=== PATIENT | female | born 1965 | race Two or more races ===

== ENCOUNTER 2020-07-28 15:03 | Emergency (ER) | payer MEDICAID ==
[~2020-07-28] VITALS: Ht 152.4 cm; Wt 40.8 kg
[2020-07-28 15:30] VITALS: BP 121/68
--- NOTE | 2020-07-28 15:30 | NUR ---
ED Nurse Note: Pt walked in from home c/o sore throat since yesterday. Pt denies cough, SOB. Respirations even and unlabored on room air. Vitals stable as documented. A+Ox4, speaking in complete sentences.
--- NOTE | 2020-07-28 16:17 | Emergency Room Report ---
History of Present Illness General Chief Complaint: Sore Throat Source: Patient Present Illness HPI 54-year-old female with no signal past medical history here complaining of 2 days of sore throat and congestion. Denies shortness of breath, fever and chills, diarrhea. Denies sick contact. Has not taken medication for symptom relief. Denies chest pain, palpitation. Sitting comfortably with same vital signs. Allergies: Coded Allergies: No Known Allergies (Unverified , 07/28/20) COVID-19 Screening Contact w/high risk pt: No Experienced COVID-19 symptoms?: Yes COVID-19 Testing performed DIRECTOR OF CARDIOLOGY: No Patient History Past Medical History: see triage record Past Surgical History: none Pertinent Family History: none Now: No Immunizations: UTD Reviewed Nursing Documentation: PMH: Agreed; PSxH: Agreed Nursing Documentation-PMH Hx Diabetes: Yes Review of Systems All Other Systems: negative except mentioned in HPI Physical Exam Vital Signs Date Time Temp Pulse Resp B/P (MAP) Pulse Ox O2 Delivery O2 Flow Rate FiO2 07/28/20 15:24 98.1 107 20 111/74 (86) 99 Room Air Sp02 EP Interpretation: reviewed, normal General Appearance: no apparent distress, alert, GCS 15, non-toxic Head: normocephalic, atraumatic Eyes: bilateral eye normal inspection, bilateral eye PERRL ENT: hearing grossly normal, normal pharynx, no angioedema, normal voice Neck: full range of motion, supple/symm/no masses Respiratory: chest non-tender, no respiratory distress, no retraction, no accessory muscle use, speaking full sentences Cardiovascular #1: no edema, no murmur Gastrointestinal: normal bowel sounds, non tender, soft, non-distended, no guarding, no rebound Rectal: deferred Genitourinary: no CVA tenderness Musculoskeletal: back normal, no calf tenderness Neurologic: alert, oriented, oriented x3 Psychiatric: judgement/insight normal, memory normal, mood/affect normal, no suicidal/homicidal ideation Skin: no rash Lymphatic: no adenopathy Medical Decision Making PA Attestation All my diagnosis and treatment plans were reviewed ad discussed with my supervising physician Dr. Cope Diagnostic Impression: Primary Impression: Pharyngitis ER Course 54-year-old female with no signal past medical history here complaining of 2 days of sore throat and congestion. Denies shortness of breath, fever and chills, diarrhea. Denies sick contact. Has not taken medication for symptom relief. Denies chest pain, palpitation. Sitting comfortably with same vital signs. Ddx considered but are not limited to: strep pharyngitis, URI, tonsillitis, sandeep tonsillar abscess, influenza, bronchitis, coronavirus Vital signs: are WNL, pt. is afebrile H&PE are most consistent with: Pharyngitis ORDERS: Rapid Covid swab, chest x-ray, azithromycin, prednisone ED INTERVENTIONS: None required at this time. DISCHARGE: At this time pt. is stable for d/c to home. Will provide printed patient care instructions, and any necessary prescriptions. Care plan and follow up instructions have been discussed with the patient prior to discharge. Take medication as directed, follow primary care provider, if worsening symptoms return to the emergency room Chest X-Ray Diagnostic Results Chest X-Ray Diagnostic Results : Chest X-Ray Ordered: Yes # of Views/Limited/Complete: 1 View Indication: Other EP Interpretation: Yes RACHEL Xray: Interpretation reviewed, by supervising MD, and agrees with findings. Interpretation: no consolidation, no effusion, no pneumothorax Impression: No acute disease Electronically Signed by: Cosmo Benjamin PA-C Last Vital Signs Date Time Temp Pulse Resp B/P (MAP) Pulse Ox O2 Delivery O2 Flow Rate FiO2 07/28/20 15:30 98.6 105 20 121/68 98 Room Air Disposition: HOME, SELF-CARE Condition: Stable Scripts Azithromycin* (ZITHROMAX*) 250 Mg Tablet 250 MG ORAL DAILY, #6 TAB 0 Refills Take two tables once daily for 1 day, then one tablet once daily for 4 days. Prov: Cosmo Guallpa 07/28/20 Prednisone* (PREDNISONE*) 20 Mg Tablet 40 MG ORAL DAILY for 5 Days, #10 TAB Prov: Cosmo Guallpa 07/28/20 Referrals: NOT CHOSEN IPA/,REFERRING (PCP) Patient Instructions: Pharyngitis, [id number] Additional Instructions: Take medication as directed, follow primary care provider, if worsening symptoms return to the emergency room Cosmo Guallpa Jul 28, 2020 16:17
[2020-07-28] MEDS ORDERED: PREDNISONE20 MG ORAL (16:18)
[2020-07-28] MEDS ORDERED: ZITHROMAX250 MG ORAL (16:18)
[2020-07-28 16:22] VITALS: BP 126/72
--- NOTE | 2020-07-28 16:22 | NUR ---
ED Nurse Note: Pt cleared by health care Provider for discharge. DC instructions/prescription were given and explained to pt and verbalized understanding of teachings. All medical devices such as ID band removed. Pt is AAO x4, ambulatory and left with all personal belongings.
--- NOTE | 2020-07-28 16:35 | Diagnostic Imaging Report ---
Indication: Shortness of breath Technique: XRAY Chest 1v Comparison: None Findings: Patient subtle interstitial infiltrates in the right lung. No dense consolidation. No pneumothorax or pleural effusion. Heart size and mediastinal contours within normal limits. No acute osseous abnormality. Impression: Question very subtle developing interstitial infiltrates in the right lung. Possibility of pneumonia (including viral pneumonia) not excluded. Correlation with COVID 19 status recommended.
== END 2020-07-28 16:22 | disposition home or self-care (01) ==
LOC: EMR 15:47
DX: J02.9 Acute pharyngitis, unspecified (principal); E11.9 Type 2 diabetes mellitus without complications
CPT/HCPCS: 71045; U0002; Z7502; 99283

== ENCOUNTER 2020-09-09 19:04 | Emergency (ER) | payer OTHER ==
[~2020-09-09] VITALS: Ht 157.5 cm; Wt 40.8 kg
[~2020-09-09 19:04] MED LIST: PREDNISONE20 MG ORAL; ZITHROMAX250 MG ORAL
--- NOTE | 2020-09-09 19:26 | Emergency Room Report ---
History of Present Illness General Chief Complaint: To Be Triaged Source: Patient Present Illness HPI Patient presents with several days of cough, fever and shortness of breath mainly with exertion. She also has a mild degree of chest pain. Rates the pain 7/10 mainly when she is coughing. She took Tylenol yesterday. It helped minimally. She has been vomiting all food. Tolerating fluids. She denies dysu harper or diarrhea. Unclear whether there is loss of smell. The patient is never been tested for Covid. Patient is a smoker. She complains of mild headache and also some joint pain and some itchiness of her skin. She is complaining about a painful lesion on her left lower lip. She has never used an inhaler. 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 No palpitations, abdominal pain, depression, anxiety, visual changes, dizziness. In our history the patient is stated she has hypertension and diabetes. She admits she is taking medications for both. The diabetes medicine is twice a day. She is not sure what medicines they are. No chest pain, palpitations, diarrhea, dysuria, abdominal pain, rashes, depr ession, anxiety, visual changes, dizziness, headache. The patient was seen in July of this year and treated for pharyngitis with azithromycin and prednisone. A chest x-ray was negative at that time. Allergies: Coded Allergies: No Known Allergies (Unverified , 07/28/20) COVID-19 Screening Contact w/high risk pt: No Experienced COVID-19 symptoms?: Yes Patient History Past Medical History: see triage record, old chart reviewed Social History: Reports: smoking; Denies: alcohol use, drug use Social History Narrative works in a store, born in [place] Reviewed Nursing Documentation: PMH: Agreed; PSxH: Agreed Nursing Documentation-PMH Hx Diabetes: Yes Review of Systems All Other Systems: negative except mentioned in HPI Physical Exam Vital Signs Date Time Temp Pulse Resp B/P (MAP) Pulse Ox O2 Delivery O2 Flow Rate FiO2 09/09/20 19:18 98.1 69 18 144/85 (104) 98 Room Air Sp02 EP Interpretation: reviewed, normal General Appearance: no apparent distress, alert, GCS 15, non-toxic, thin Head: normocephalic Eyes: bilateral eye normal inspection, bilateral eye PERRL, bilateral eye EOMI ENT: moist mucus membranes - Edentulous, other Neck: supple Respiratory: chest non-tender, other - crackles R base, left normal Cardiovascular #1: regular rate, rhythm, no edema Cardiovascular #2: 2+ radial (R) Gastrointestinal: normal inspection, normal bowel sounds, non tender, no mass, non-distended, scaphoid Genitourinary: no CVA tenderness Musculoskeletal: back normal, normal range of motion, no calf tenderness, gait/station normal Neurologic: alert, oriented x3, grossly normal Psychiatric: mood/affect normal Skin: no rash, warm/dry, other - fully dressed Medical Decision Making Diagnostic Impression: Primary Impression: Dyspnea Qualified Codes: R06.00 - Dyspnea, unspecified Additional Impressions: Upper respiratory infection Qualified Codes: J06.9 - Acute upper respiratory infection, unspecified Tobacco abuse Covid antigen test negative Nausea & vomiting Qualified Codes: R11.2 - Nausea with vomiting, unspecified Cold sore Person under investigation for COVID-19 ER Course Patient presents with fever, dyspnea and cough for several days duration with vomiting solid food. Differential includes COVID-19, viral upper respiratory illness, COPD, gastroenteritis, pneumonia, PE amongst others. Based on VS and hx, doubt PE. Patient evaluated EKG, chest x-ray and labs. Patient treated with normal saline bolus, Zofran and Tylenol. Patient placed in isolation until Covid test returns. EKG without injury or strain. Chest x-ray without infiltrates. White count is low. CMP essentially normal. Inflammatory markers elevated. Troponin negative. Lactate negative. Patient improved with treatment. No coughing here and repeat exam without wheezes. PCR Covid test sent as inflammatory markers are elevated. Urinalysis had pyuria however this appeared to be a contaminated specimen. The patient has no complaints of dysuria. Decision to wait for cultures for the possibility of treatment. Because of the history of smoking, appearance of the x-ray and the dyspnea the patient was instructed on albuterol inhaler use. Patient improved and states that the nausea is completely resolved. Patient tolerating oral intake at this time. No medical emergency at this time. Patient stable for outpatient observation and treatment. Patient advised patient advised to self isolate at this time and placed off of work. Laboratory Tests Test 09/09/20 19:50 09/09/20 21:58 White Blood Count 2.9 K/UL (4.8-10.8) L Red Blood Count 3.44 M/UL (4.20-5.40) L Hemoglobin 10.5 G/DL (12.0-16.0) L Hematocrit 31.2 % (37.0-47.0) L Mean Corpuscular Volume 91 FL (80-99) Mean Corpuscular Hemoglobin 30.4 PG (27.0-31.0) Mean Corpuscular Hemoglobin Concent 33.5 G/DL (32.0-36.0) Red Cell Distribution Width 14.1 % (11.6-14.8) Platelet Count 138 K/UL (150-450) L Mean Platelet Volume 6.9 FL (6.5-10.1) Neutrophils (%) (Auto) % (45.0-75.0) Lymphocytes (%) (Auto) % (20.0-45.0) Monocytes (%) (Auto) % (1.0-10.0) Eosinophils (%) (Auto) % (0.0-3.0) Basophils (%) (Auto) % (0.0-2.0) Differential Total Cells Counted 50 Neutrophils % (Manual) 24 % (45-75) L Lymphocytes % (Manual) 62 % (20-45) H Monocytes % (Manual) 12 % (1-10) H Eosinophils % (Manual) 2 % (0-3) Basophils % (Manual) 0 % (0-2) Band Neutrophils 0 % (0-8) Nucleated Red Blood Cells 1 /100 WBC Platelet Estimate Decreased L Platelet Morphology Normal Red Blood Cell Morphology Normal Prothrombin Time 11.0 SEC (9.30-11.50) Prothrombin Time INR 1.0 (0.9-1.1) Activated Partial Thromboplast Time 30 SEC (23-33) Sodium Level 140 MMOL/L (136-145) Potassium Level 4.0 MMOL/L (3.5-5.1) Chloride Level 107 MMOL/L (98-107) Carbon Dioxide Level 26 MMOL/L (21-32) Anion Gap 7 mmol/L (5-15) Blood Urea Nitrogen 16 mg/dL (7-18) Creatinine 1.0 MG/DL (0.55-1.30) Estimated Glomerular Filtration Rate 58.0 mL/min (>60) Glucose Level 157 MG/DL (74-106) H Lactic Acid Level 0.80 mmol/L (0.4-2.0) Calcium Level 8.2 MG/DL (8.5-10.1) L Magnesium Level 2.0 MG/DL (1.8-2.4) Ferritin 429 NG/ML (8-388) H Total Bilirubin 0.4 MG/DL (0.2-1.0) Aspartate Amino Transferase (AST) 32 U/L (15-37) Alanine Aminotransferase (ALT) 22 U/L (12-78) Alkaline Phosphatase 103 U/L (46-116) Lactate Dehydrogenase 322 U/L (81-234) H Total Creatine Kinase 38 U/L (26-308) Troponin I 0.007 ng/mL (0.000-0.056) C-Reactive Protein, Quantitative 1.6 mg/dL (0.00-0.90) H Pro-B-Type Natriuretic Peptide 627 pg/mL (0-125) H Total Protein 8.7 G/DL (6.4-8.2) H Albumin 2.6 G/DL (3.4-5.0) L Globulin 6.1 g/dL Albumin/Globulin Ratio 0.4 (1.0-2.7) L Lipase 212 U/L (73-393) Urine Color Pale yellow Urine Appearance Slightly cloudy Urine pH 6 (4.5-8.0) Urine Specific [place] 1.010 (1.005-1.035) Urine Protein 3+ (NEGATIVE) H Urine Glucose (UA) Negative (NEGATIVE) Urine Ketones Negative (NEGATIVE) Urine Blood 2+ (NEGATIVE) H Urine Nitrite Negative (NEGATIVE) Urine Bilirubin Negative (NEGATIVE) Urine Urobilinogen Normal MG/DL (0.0-1.0) Urine Leukocyte Esterase 2+ (NEGATIVE) H Urine RBC 2-4 /HPF (0 - 2) H Urine WBC 10-15 /HPF (0 - 2) H Urine Squamous Epithelial Cells Many /LPF (NONE/OCC) H Urine Bacteria Moderate /HPF (NONE) H Urine Trichomonas Few /HPF (NONE) H Microbiology Date/Time Source Procedure Growth Status 09/09/20 19:50 Nasopharynx SARS-CoV-2 Antigen (Rapid)([place]) - Final Complete EKG Diagnostic Results Rate: normal Rhythm: NSR ST Segments: no acute changes Rhythm Strip Diag. Results EP Interpretation: yes Rhythm: NSR, no PVC's, no ectopy Chest X-Ray Diagnostic Results Chest X-Ray Diagnostic Results : Chest X-Ray Ordered: Yes # of Views/Limited/Complete: 1 View Indication: Shortness of Breath EP Interpretation: Yes Interpretation: no consolidation, no effusion, no pneumothorax, other - Some emphysematous changes Impression: Other Electronically Signed by: Electronically signed by Antelmo Blue MD Last Vital Signs Date Time Temp Pulse Resp B/P (MAP) Pulse Ox O2 Delivery O2 Flow Rate FiO2 09/09/20 20:05 69 18 Room Air 09/09/20 20:05 98.1 144/85 98 Status: improved Disposition: HOME, SELF-CARE Condition: Improved Scripts Ondansetron Odt* (ZOFRAN ODT*) 4 Mg Tab.rapdis 4 MG BC EVERY 8 HOURS, #6 TAB 0 Refills Prov: Antelmo Blue MD 09/09/20 Guaifenesin/Dextromethorphan (Robitussin Cough-Chest Dm Liq) 237 Ml Liquid 10 ML PO Q6HR PRN for For Cough, #120 ML Prov: Antelmo Blue MD 09/09/20 Albuterol Sulfate* (Albuterol Sulfate Hfa*) 8.5 Gm Hfa.aer.ad 2 PUFF INH Q6H, #1 INH Prov: Antelmo Blue MD 09/09/20 Antelmo Blue MD Sep 09, 2020 19:26
[2020-09-09] MEDS ORDERED: Acetaminophen 500mg (ES) tab ORAL ONE ×2 (19:30→19:45)
[2020-09-09 20:01] LABS: HEMATOCRIT 31.2 % (37.0-47.0); HEMOGLOBIN 10.5 G/DL (12.0-16.0); MEAN CORPUSCULAR VOLUME 91 FL (80-99); PLATELET COUNT 138 K/UL (150-450); RED BLOOD COUNT 3.44 M/UL (4.20-5.40); RED CELL DISTRIBUTION WIDTH 14.1 % (11.6-14.8); WHITE BLOOD COUNT 2.9 K/UL (4.8-10.8)
[2020-09-09 20:05] VITALS: BP 144/85
--- NOTE | 2020-09-09 20:07 | NUR ---
pt aox3. c/o sob, chest discomfort. pt connected to monitor. v/s stable. pt in no distress. medicated per sep. 18 g iv to lac established. labs collected and sent to lab. pt ekg done and given to md. will continue to monitor pt closely.
[2020-09-09 20:16] LABS: ANION GAP 7 mmol/L (5-15); BLOOD UREA NITROGEN 16 mg/dL (7-18); CALCIUM 8.2 MG/DL (8.5-10.1); CARBON DIOXIDE 26 MMOL/L (21-32); CHLORIDE 107 MMOL/L (98-107); SODIUM 140 MMOL/L (136-145)
--- NOTE | 2020-09-09 20:25 | Diagnostic Imaging Report ---
EXAM: XR Chest, 1 View CLINICAL HISTORY: COUGH TECHNIQUE: Frontal view of the chest. COMPARISON: Chest x-ray 07/28/2020 FINDINGS: Lungs: No consolidation. Pleural space: No pleural effusion. No pneumothorax. Heart: Unremarkable. No cardiomegaly. IMPRESSION: No acute cardiopulmonary abnormality.
[2020-09-09 20:31] LABS: ALANINE AMINOTRANSFERASE 22 U/L (12-78); ALBUMIN 2.6 G/DL (3.4-5.0); ALBUMIN/GLOBULIN RATIO 0.4 (1.0-2.7); ALKALINE PHOSPHATASE 103 U/L (46-116); ASPARTATE AMINO TRANSFERASE 32 U/L (15-37); BILIRUBIN,TOTAL 0.4 MG/DL (0.2-1.0); CREATINE KINASE 38 U/L (26-308); FERRITIN 429 NG/ML (8-388); LACTATE DEHYDROGENASE 322 U/L (81-234)
[2020-09-09 22:12] LABS: APPEARANCE,URINE SLIGHTLY CLOUDY; BILIRUBIN, URINE NEGATIVE (NEGATIVE); COLOR,URINE PALE YELLOW; GLUCOSE, URINE (UA) NEGATIVE (NEGATIVE); KETONES,URINE NEGATIVE (NEGATIVE); LEUKOCYTE ESTERASE ,URINE 2+ (NEGATIVE); NITRITE,URINE NEGATIVE (NEGATIVE); PH,URINE 6 (4.5-8.0); PROTEIN,URINE 3+ (NEGATIVE); UROBILINOGEN,URINE NORMAL MG/DL (0.0-1.0)
[2020-09-09] MEDS ORDERED: ONDANSETRON ODT4 MG BC (22:17)
[2020-09-09] MEDS ORDERED: ROBITUSSIN COU237 M2 PO (22:17)
[2020-09-09] MEDS ORDERED: ALBUTEROL SULF8.5 G1 INH (22:17)
--- NOTE | 2020-09-09 22:31 | NUR ---
pt aox4. given and understands discharge instructions. ambulatory outw steady gait
== END 2020-09-09 22:33 | disposition home or self-care (01) ==
LOC: EMR 19:38
DX: J06.9 Acute upper respiratory infection, unspecified (principal); R06.00 Dyspnea, unspecified; R11.2 Nausea with vomiting, unspecified; B00.1 Herpesviral vesicular dermatitis; Z72.0 Tobacco use; E11.9 Type 2 diabetes mellitus without complications; Z79.899 Other long term (current) drug therapy
CPT/HCPCS: 36415; 71045; 80053; 81003; 82550; 82728; 83605; 83615; 83690; 83735; 83880; 84484; 85007; 85025; 85610; 85730; 86140; 87086; 93005; 96361; 96374; J2405; J7030; U0004; Z7502; 99284